=== PATIENT | male | born 1985 | race Caucasian/White ===

== ENCOUNTER 2016-10-22 12:07 | Emergency (ER) | payer MEDICAID ==
[~2016-10-22] VITALS: Ht 175.3 cm; Wt 90.3 kg
[2016-10-22 12:41] VITALS: BP 146/97
== END 2016-10-22 13:57 | disposition home or self-care (01) ==
LOC: ER 12:07
DX: S62.304A Unspecified fracture of fourth metacarpal bone, right hand, initial encounter for closed fracture (principal); F17.210 Nicotine dependence, cigarettes, uncomplicated; F12.10 Cannabis abuse, uncomplicated; X58.XXXA Exposure to other specified factors, initial encounter; Y93.89 Activity, other specified; Y99.8 Other external cause status; Y92.89 Other specified places as the place of occurrence of the external cause
CPT/HCPCS: 29125; 73130

== ENCOUNTER 2016-11-07 11:55 | Emergency (ER) | payer MEDICAID ==
[~2016-11-07] VITALS: Ht 177.8 cm; Wt 90.3 kg
[2016-11-07 12:56] VITALS: BP 147/101
== END 2016-11-07 12:59 | disposition home or self-care (01) ==
LOC: ER 11:57
DX: M79.641 Pain in right hand (principal); Z76.0 Encounter for issue of repeat prescription; F17.210 Nicotine dependence, cigarettes, uncomplicated; F12.10 Cannabis abuse, uncomplicated; Z87.81 Personal history of (healed) traumatic fracture

== ENCOUNTER 2017-12-19 05:53 | Emergency (ER) | payer MEDICAID ==
[~2017-12-19] VITALS: Ht 177.8 cm; Wt 95.3 kg
[2017-12-19 06:04] VITALS: BP 150/87
== END 2017-12-19 06:24 | disposition left against medical advice (07) ==
LOC: ER 05:53
DX: M79.89 Other specified soft tissue disorders (principal); Z53.21 Procedure and treatment not carried out due to patient leaving prior to being seen by health care provider

== ENCOUNTER 2018-01-22 16:15 | Emergency (ER) | payer MEDICAID ==
[~2018-01-22] VITALS: Ht 175.3 cm; Wt 89.8 kg
[2018-01-22 16:52] VITALS: BP 141/102
[2018-01-22 17:09] LABS: Urine WBC None Seen /hpf (0 - 3)
[2018-01-22 17:36] LABS: Basophils # (auto) 0.1 uL; Eosinophils # (auto) 0 uL; Eosinophils % (auto) 0.4 % (0.0-7.0); Hematocrit 47.4 % (41.0-53.0); Hemoglobin 15.9 g/dL (13.5-17.5); Lymphocytes % (auto) 22.6 % (10.0-50.0); Mean Corpuscular Hemoglobin 31.2 pg (28.0-32.0); Mean Corpuscular Hgb Conc. 33.5 g/dL (32.0-36.0); Mean Corpuscular Volume 93.2 fL (80.0-100.0); Monocytes % (auto) 7.3 % (0.0-12.0); Neutrophils % (auto) 68.7 % (37.0-80.0); Nucleated Red Blood Cells % 0.1 %; Platelet Count (auto) 382 10^3/uL (140-450); Red Blood Cells 5.08 10^6/uL (4.5-5.90); Red Cell Distribution Width 13.2 % (11.8-14.3); White Blood Cell 13.1 10^3/uL (4.4-10.8)
[2018-01-22 17:41] LABS: Urine Amorphous Crystal FEW /hpf (None Seen); Urine Bacteria NONE SEEN /hpf (None Seen); Urine Blood Negative /uL (Negative); Urine Mucus FEW (None Seen); Urine Specific Gravity 1.032 (1.001-1.035)
[2018-01-22 17:53] LABS: Barbiturate Scree,Urine NEGATIVE (NEGATIVE); Cannabinoid Screen, Urine POSITIVE (NEGATIVE); Cocaine Screen, Urine NEGATIVE (NEGATIVE); Opiate Scree,Urine NEGATIVE (NEGATIVE); Phencyclidine Screen, Urine NEGATIVE (NEGATIVE)
[2018-01-22 17:55] LABS: Albumin 4.2 g/dL (3.4-5.0); BUN/Creatinine Ratio 12.4; Calcium 8.6 mg/dL (8.5-10.1); Magnesium 2.1 mg/dL (1.6-2.6); Potassium 3.6 mmol/L (3.5-5.1)
[2018-01-22] MEDS ORDERED: SODIUM CHLORIDE 0.9% 1,000 ML IV ONE (18:00)
[2018-01-22 18:05] LABS: Amphetamine Screen, Urine NEGATIVE (NEGATIVE); Benzodiazephine Screen, Urine NEGATIVE (NEGATIVE)
[2018-01-22 18:21] LABS: Bilirubin, Total 0.4 mg/dL (0.2-1.0); Total Protein 8.7 g/dL (6.4-8.2)
== END 2018-01-22 18:41 | disposition left against medical advice (07) ==
LOC: ER 16:19
DX: F10.129 Alcohol abuse with intoxication, unspecified (principal); F17.210 Nicotine dependence, cigarettes, uncomplicated; Z53.29 Procedure and treatment not carried out because of patient's decision for other reasons
CPT/HCPCS: 36415; 80053; 80307; 80320; 81001; 83735; 84550; 85025; 94761